=== PATIENT | female | born 1975 | race Caucasian/White ===

== ENCOUNTER 2019-06-01 11:48 | Emergency (ER) | payer OTHER, MEDICAID, SELFPAY ==
[2019-06-01] VITALS (9 sets, daily range): BP systolic 96–135; BP diastolic 58–73; PULSE 84–113; RESP 16–29; TEMP 36.7; O2SAT 96–100; BMI 52.8
[2019-06-01 12:28] LABS: Add Manual Diff / Slide Review NO; Basophils Absolute Auto 0 /uL (0-100); Basophils Percent Auto 1.4 % (0-2); Eosinophils Absolute Auto 100 /uL (0-450); Eosinophils Percent Auto 3.1 % (2-4); Hematocrit 32.1 % (36-46); Lymphocytes Absolute Auto 600 /uL (1100-4500); Mean Corpuscular HGB Conc 34.3 % (30-36); Mean Corpuscular Hemoglobin 35.5 PG (26-34); Mean Corpuscular Volume 103.6 fL (80-100); Monocytes Absolute Auto 200 /uL (0-900); Monocytes Percent Auto 8.8 % (3-14); Neutrophils Absolute Auto 1400 /uL (1500-7000); Neutrophils Percent Auto 59.7 % (50-75); Platelet Count 111 X10^3/uL (150-400); Red Cell Distribution Width 15.5 % (11.6-14.8); White Blood Cell Count 2.3 X10^3/uL (4.5-11.0)
[2019-06-01 12:34] LABS: INR 1.3 (0.9-1.3); Prothrombin Time 15.2 SECONDS (10.1-12.7)
[2019-06-01 12:36] LABS: PTT Partial Thromboplastin Tim 39 SECONDS (26.4-36.2)
[2019-06-01 12:38] LABS: Alanine Aminotransferase 46 IU/L (<35); Albumin 3.4 g/dL (3.5-5.0); Alkaline Phosphatase 196 U/L (38-126); Aspartate Aminotransferase 153 IU/L (14-36); BUN Creatinine Ratio 23.3 (6-22); Bilirubin Total 12.7 mg/dL (0.2-1.3); Blood Urea Nitrogen 14 mg/dL (7-17); Calcium 8.8 mg/dL (8.4-10.2); Carbon Dioxide 22 mmol/L (22-32); Chloride 104 mmol/L (98-107); Estimated Glomerular Filt Rate > 60.0 mL/min (>60); Globulin 3.5 g/dL (1.7-4.1); Glucose 99 mg/dL (70-100); HEMOLYSIS < 15 (0-50); Lipase 59 U/L (23-300); Potassium 3.7 mmol/L (3.4-5.1); Sodium 137 mmol/L (137-145); Total Protein 6.9 g/dL (6.3-8.2)
--- NOTE | 2019-06-01 13:22 | DI.CT.S_ITS ---
PROCEDURE: CT ABDOMEN PELVIS W CON INDICATIONS: Painless jaundice TECHNIQUE: After the administration of oral and intravenous contrast, 5 mm thick sections acquired from the diaphragms to the symphysis. 5 mm thick coronal and sagittal reformats were performed. For radiation dose reduction, the following was used: automated exposure control, adjustment of mA and/or kV according to patient size. COMPARISON: None. FINDINGS: Image quality: Excellent. ABDOMEN: Lung bases: Lung bases are clear. Heart size is normal. Solid organs: The liver is hypodense when compared to the spleen. There is slight nodular appearance to the surface of the liver. No definite liver lesions are appreciated. The gallbladder appears to be contracted and demonstrates a nodular irregular appearance. Calcifications within the gallbladder are present. No intrahepatic or definite extrahepatic biliary dilatation is identified. There is edema within the mesentery within the region of the gallbladder fossa that predominantly is centered about the duodenum. A trace amount of perihepatic fluid is noted. The spleen is enlarged and measures up to 17.9 cm and craniocaudal dimension. No definite splenic lesions are evident. The adrenals and kidneys are within normal limits. The pancreas appears to be within normal limits, as well. Peritoneum and bowel: The stomach is unremarkable. There is wall thickening of the 1st and 2nd portions of the duodenum with prominent surrounding edema within the adjacent mesentery. Otherwise, the duodenum is unremarkable. The small bowel loops are nondilated. There is a normal amount of stool identified within the colon. There is prominent fatty infiltration of the wall of the majority of the colon, most pronounced involving the ascending and transverse portions of the colon. A small amount of ascites is identified. There is no loculated fluid collection or free air. There is a moderate-sized infraumbilical ventral hernia that contains a fair amount of mesenteric contents. However, no bowel is seen extending into this hernia. The defect of the abdominal wall measures up to 4.2 cm in diameter. Nodes and vessels: No retroperitoneal or mesenteric adenopathy. Aorta and inferior vena cava are normal in caliber. Bones: No acute fracture or suspicious osseous lesion is evident. Age-appropriate degenerative changes of the spine are present. Other: Extensive subcutaneous edema is evident overlying the anterior and lateral portions of the abdomen. PELVIS: Genitourinary: Bladder wall thickness is normal. The uterus and ovaries do not appear to be enlarged. Miscellaneous: No inguinal hernias or adenopathy. Small amount of free fluid is seen within the pelvis. There is no loculated fluid collection or free air. Bones: No suspicious bony lesions. No acute pelvic fractures are identified. IMPRESSION: 1. Wall thickening and surrounding soft tissue edema involving the 1st and 2nd portions of the duodenum is suggestive of duodenitis. 2. The gallbladder is abnormal and may be contracted. There are gallstones within the gallbladder. The gallbladder ultrasound is recommended to exclude the possibility of a gallbladder mass. If the gallbladder ultrasound is negative, MRI of the liver with contrast is recommended for further evaluation. 3. Hepatic steatosis. Early nodular appearance to the liver does raise suspicion for potential early developing hepatic cirrhosis. 4. Marked splenomegaly without a definable mass or lesion. The splenic vein is enlarged. This is most likely related to chronic liver disease. However, clinical correlation to exclude an infiltrative/neoplastic process of the spleen is recommended. 5. Large infraumbilical ventral hernia containing mesentery. 6. Extensive fatty infiltration of the wall of the colon is nonspecific, but often seen in the setting of chronic inflammatory bowel disease, such as ulcerative colitis or Crohn's disease. 7. Small amount of abdominal and pelvic ascites. Dictated by: Kg Foster M.D. on 06/01/2019 at 13:50 Approved by: Kg Foster M.D. on 06/01/2019 at 14:01
[2019-06-01 15:57] LABS: Amorphous Sediment Urine 1+; Bacteria Urine Moderate (10-30); Culture Indicated Urine Specimen Cultured; Ictotest Urine Positive (Negative); Mucus Urine 1+ (Negative); RBC Urine 0-1/HPF (0-5/HPF); Squamous Epithelial Cell Urine 1-5 /HPF (0-5/HPF); Transitional Epi Cells Urine 1-5/HPF (0-5/HPF); WBC Urine 5-10/HPF (0-5/HPF)
--- NOTE | 2019-06-01 16:10 | ED.ABDPAIN ---
HPI - Abdominal Pain General Chief Complaint: Abdominal Pain Stated Complaint: jaundice and swelling Time Seen by Provider: 06/01/19 13:03 Source: patient Mode of arrival: Ambulatory History of Present Illness HPI narrative: Chief complaint: Swelling of her legs. HPI: The patient is a 43-year-old female who was very guarded in providing history. She admits to being a chronic alcoholic and states that she has a history of gallbladder problems with gallstones that is being discussed with a physician. She also states that she has developing cirrhosis of the liver. She states that she has developed jaundice over the last few days prior to admission. She is complaining that her skin over her abdomen and legs just itches intensely. She has developed progressively worse swelling of her legs over the last 2 weeks with progressive weakness and difficulty in walking. She denies a history of ascites, kidney failure, or congestive heart failure. She denies anyabdominal pain, and fever chills sweats, chest pain cough shortness of breath, nausea vomiting diarrhea or dysuria. She denies a history of hepatitis, TB, HIV. Related Data Home Medications Medication Instructions Recorded Confirmed bupropion HCl [Wellbutrin SR] 150 mg PO BID 06/01/19 06/01/19 ibuprofen 200 mg PO PRN PRN 06/01/19 06/01/19 Previous Rx's Medication Instructions Recorded furosemide [Lasix] 20 mg PO QAM #10 tab 06/01/19 spironolactone 25 mg PO BID #30 tab 06/01/19 Allergies Allergy/AdvReac Type Severity Reaction Status Date / Time No Known Drug Allergies Allergy Verified 06/01/19 11:56 Review of Systems Review of Systems ROS Unobtainable: All systems reviewed & are unremarkable except as noted in HPI and below Exam Narrative Exam Narrative: PHYSICAL EXAM: CONSTITUTIONAL: Awake, Alert, Oriented, Coherent, Cooperative in NAD. The patient is mildly diffusely yellow with jaundice. The patient appears morbidly obese HEAD: AT/NC EENT: PERRL, FROM of eyes, no discharge, no nystagmus marked scleral icterus No epistaxis or nasal drainage Oral mucosa is moist and pink, posterior pharynx is without erythema or exudate. NECK: Supple, no obvious JVD, Trachea is midline without stridor, no palpable LN or masses. Short neck. SPINE: No gross deformity, no palpable tenderness of the cervical, thoracic, lumbar or sacral spine. No CVA tenderness. THORAX: No deformity, retractions, chest wall tenderness, subcutaneous air or crepitice. LUNGS: Decreased breath sounds bilaterally with a few inspiratory crackles in both bases otherwise clear and symmetrical HEART: Normal heart tones, regular rhythm and rate without murmur. ABDOMEN: Soft, non-tender, normal bowel sounds without guarding, rebound, rigidity or palpable mass. The patient was thought to have ascites but there was minimal shifting dullness. EXTREMITIES: Obese with 2+ pitting edema no erythema. Was no petechia purpura or varicose veins. SKIN: There is a large circular area of minimal erythema caused by scratching over her central lower abdomen with linear excoriations radiating and extending upwards. I did not appreciate any petechia purpura spider angiomas. NEURO: Awake, alert, oriented, conversive, cranial nerves II-XII are symmetrical and normal, moves all 4 extremities and is ambulatory. There was no asterixis. Initial Vital Signs Initial Vital Signs: Vital Signs Temperature 98.1 F 06/01/19 11:56 Pulse Rate 113 H 06/01/19 11:56 Respiratory Rate 16 06/01/19 11:56 Blood Pressure 135/65 06/01/19 11:56 Pulse Oximetry 100 06/01/19 11:56 Course Course Course Narrative: The patient's CBC reveals a WBC of 2.3 hemoglobin 11.0 hematocrit 32.1 59.7% neutrophils protime is 15.2 with an INR 1.3 PTT is 39 seconds bilirubin is 12.7 AST is 153 ALT is 46 and alkaline phosphatase is 196. The patient's urinalysis is positive for bilirubin 0-1 red blood cell per high-power field white blood cells are 5-10 per high-power field moderate bacteria the specimen will be cultured. This is consistent with a urinary tract infection. A CT scan of the patient's abdomen reveals 1. Wall thickening and surrounding soft tissue edema involving the 1st and 2nd portions of the duodenum suggesting acute duodenitis. 2. The gallbladder is abnormal an may be contracted. There are gallstones within the gallbladder. The gallbladder ultrasound recommended to exclude the possibility of a gallbladder mass. If the gallbladder ultrasound is negative MRI of the liver with contrast is recommended for further evaluation. 3. Hepatic steatosis. Early nodular appearance of the liver does raises suspicion for potentially early developing hepatic cirrhosis. 4. Marked splenomegaly without a definable mass or lesion. The splenic vein is in large. This is most likely related to chronic liver disease. However clinical correlation to exclude 5. Large infraumbilical ventral hernia containing mesentery. 6 extensively fatty infiltration of the wall of the colon he is nonspecific, but often seen in setting of chronic inflammatory bowel disease such as ulcerative colitis or Crohn's disease. 7. Small amount of abdominal and pelvic ascites. I will discuss the patient with the on-call hospitalist. I discussed the patient with Dr. Gonzalez the hospitalist on-call who felt that the patient could be discharged home. The patient's ultrasound talking to the radiologist revealed that the gallbladder was contracted and filled with stones. There was no dilated or obstructed common bile duct or hepatic ducts. They did not see any tumor. He did review the review the CT scan as we were talking and stated that the patient has evidence of cirrhosis. She will need be seen in follow-up by a salesperson pianos and organs and a possible MRI obtained of the liver and gallbladder. The patient was informed of this discussion and agreed with being discharged home to be seen in follow-up by a specialist. She was advised to return to the emergency department if she develops worsening intolerable pain and discomfort, intractable persistent vomiting, pain with fever. She understood the instructions and was discharged home. Orders Ordered: Discontinued Medications Furosemide (Lasix) 40 mg IV NOW ONE Stop: 06/01/19 18:46 Last Admin: 06/01/19 18:50 Dose: 40 mg Documented by: ALYSESENVish Spironolactone (Aldactone) 25 mg PO NOW ONE Stop: 06/01/19 18:43 Last Admin: 06/01/19 19:15 Dose: 25 mg Documented by: RAMANA Vital Signs Vital signs: Vital Signs - 8 hr 06/01/19 11:56 06/01/19 15:00 Temperature 98.1 F Pulse Rate 113 H 88 Respiratory Rate 16 22 Blood Pressure 135/65 Blood Pressure [Left Arm] 126/59 L Pulse Oximetry 100 98 MDM - Abdominal Pain Lab Data Attestation: I reviewed the patient's lab results. Result diagrams: 06/01/19 12:20 06/01/19 12:20 Labs: Lab Results 06/01/19 06/01/19 06/01/19 Range/Units 12:20 12:20 12:20 WBC 2.3 L (4.5-11.0) X10^3/uL RBC 3.10 L (4.0-5.2) X10^6/uL Hgb 11.0 L (12.0-16.0) g/dL Hct 32.1 L (36-46) % MCV 103.6 H (80-100) fL MCH 35.5 H (26-34) PG MCHC 34.3 (30-36) % RDW 15.5 H (11.6-14.8) % Plt Count 111 L (150-400) X10^3/uL Neut % (Auto) 59.7 (50-75) % Lymph % (Auto) 27.0 (25-40) % [place] % (Auto) 8.8 (3-14) % Eos % (Auto) 3.1 (2-4) % Baso % (Auto) 1.4 (0-2) % Neut # (Auto) 1400 L (2532-4380) /uL Lymph # (Auto) 600 L (6475-6774) /uL [place] # (Auto) 200 (0-900) /uL Eos # (Auto) 100 (0-450) /uL Baso # (Auto) 0 (0-100) /uL PT 15.2 H (10.1-12.7) SECONDS INR 1.3 (0.9-1.3) APTT 39 H (26.4-36.2) SECONDS Sodium 137 (137-145) mmol/L Potassium 3.7 (3.4-5.1) mmol/L Chloride 104 (98-107) mmol/L Carbon Dioxide 22 (22-32) mmol/L BUN 14 (7-17) mg/dL Creatinine 0.60 (0.52-1.04) mg/dL Estimated GFR > 60.0 (>60) mL/min BUN/Creatinine Ratio 23.3 H (6-22) Glucose 99 (70-100) mg/dL Calcium 8.8 (8.4-10.2) mg/dL Total Bilirubin 12.7 H (0.2-1.3) mg/dL AST 153 H (14-36) IU/L ALT 46 H (<35) IU/L Alkaline Phosphatase 196 H (38-126) U/L Ammonia (9-30) umol/L Total Protein 6.9 (6.3-8.2) g/dL Albumin 3.4 L (3.5-5.0) g/dL Globulin 3.5 (1.7-4.1) g/dL Albumin/Globulin Ratio 1.0 (1.0-2.8) Lipase 59 (23-300) U/L Ur Bilirubin Confirm (Negative) Urine RBC (0-5/HPF) Urine WBC (0-5/HPF) Ur Squamous Epith Cells (0-5/HPF) Ur Transition Epith Cell (0-5/HPF) Amorphous Sediment Urine Bacteria (None) Urine Mucus (Negative) Ur Culture Indicated? 06/01/19 06/01/19 Range/Units 15:39 16:45 WBC (4.5-11.0) X10^3/uL RBC (4.0-5.2) X10^6/uL Hgb (12.0-16.0) g/dL Hct (36-46) % MCV (80-100) fL MCH (26-34) PG MCHC (30-36) % RDW (11.6-14.8) % Plt Count (150-400) X10^3/uL Neut % (Auto) (50-75) % Lymph % (Auto) (25-40) % [place] % (Auto) (3-14) % Eos % (Auto) (2-4) % Baso % (Auto) (0-2) % Neut # (Auto) (9027-7408) /uL Lymph # (Auto) (8018-2280) /uL [place] # (Auto) (0-900) /uL Eos # (Auto) (0-450) /uL Baso # (Auto) (0-100) /uL PT (10.1-12.7) SECONDS INR (0.9-1.3) APTT (26.4-36.2) SECONDS Sodium (137-145) mmol/L Potassium (3.4-5.1) mmol/L Chloride (98-107) mmol/L Carbon Dioxide (22-32) mmol/L BUN (7-17) mg/dL Creatinine (0.52-1.04) mg/dL Estimated GFR (>60) mL/min BUN/Creatinine Ratio (6-22) Glucose (70-100) mg/dL Calcium (8.4-10.2) mg/dL Total Bilirubin (0.2-1.3) mg/dL AST (14-36) IU/L ALT (<35) IU/L Alkaline Phosphatase (38-126) U/L Ammonia 10 (9-30) umol/L Total Protein (6.3-8.2) g/dL Albumin (3.5-5.0) g/dL Globulin (1.7-4.1) g/dL Albumin/Globulin Ratio (1.0-2.8) Lipase (23-300) U/L Ur Bilirubin Confirm Positive H (Negative) Urine RBC 0-1/hpf (0-5/HPF) Urine WBC 5-10/hpf H (0-5/HPF) Ur Squamous Epith Cells 1-5 /hpf (0-5/HPF) Ur Transition Epith Cell 1-5/hpf (0-5/HPF) Amorphous Sediment 1+ Urine Bacteria Moderate (10-30) H (None) Urine Mucus 1+ H (Negative) Ur Culture Indicated? Specimen cultured Point of care testing: Point of Care Testing Test Results Negative Urine Dip Bedside Urine Glucose 100 mg/dl Bedside Urine Bilirubin +++ 4 Bedside Urine Ketone +/- 5 Urine Specific [place] 1.025 Bedside Urine Occult Blood +/- Bedside Urine pH 5.5 Bedside Urine Protein + 30 Bedside Urine Urobilinogen 2+ 4mg Bedside Urine Nitrite + Positive Bedside Urine Leukocytes ++ 125 Esterase Discharge Plan Departure Patient Disposition: Home Clinical Impression: Edema, peripheral, Cholestatic pruritus, Hyperbilirubinemia, Alcoholism Cholelithiasis Qualifiers: Cholelithiasis location: gallbladder Cholecystitis presence: without cholecystitis Biliary obstruction: without biliary obstruction Qualified Code(s): K80.20 - Calculus of gallbladder without cholecystitis without obstruction Cirrhosis of liver Qualifiers: Hepatic cirrhosis type: alcoholic cirrhosis Ascites presence: with ascites Qualified Code(s): K70.31 - Alcoholic cirrhosis of liver with ascites Discharge Date/Time: 06/01/19 19:23 Instructions: DI for Jaundice, DI for Gallstones, DI for Abdominal Pain-Adult Activity Restrictions/Additional Instructions: Follow-up with a liver specialist and her primary care physician. Limit your fluid intake or your legs are swelling to 2 L per day. Take the Lasix 20 mg per day and spironolactone 25 mg b.i.d.. You will need to have your potassium recheck act in 5-7 days. If you develop worsening pain, persistent nausea and vomiting, difficulty in breathing, fever, you need to return to the emergency department or proceed to the nearest emergency department were every year or are. Prescriptions: New spironolactone 25 mg tablet 25 mg PO BID Qty: 30 RF: 0 furosemide [Lasix] 20 mg tablet 20 mg PO QAM Qty: 10 RF: 1 No Action bupropion HCl [Wellbutrin SR] 150 mg Tablet Sustained-Release 12 Hr 150 mg PO BID RF: 0 ibuprofen 200 mg Tablet 200 mg PO PRN PRN (Reason: pain) RF: 0
--- NOTE | 2019-06-01 16:22 | DI.US.S_ITS ---
PROCEDURE: US ABDOMEN LIMITED INDICATIONS: PAINLESS JAUNDICE W/GALLSTONES, R/O TUMOR PER CT REPORT TECHNIQUE: Real-time focused scanning was performed of the abdomen, with image documentation. COMPARISON: [facility], CT, CT ABDOMEN PELVIS W CON, 06/01/2019, 14:33. FINDINGS: Note: Limited exam due to body habitus and poor acoustic windows. Liver: Heterogeneous echotexture and increased in echogenicity. Gallbladder: Decompressed. Filled with shadowing gallstones. Gallbladder wall is difficult to visualize. No pericholecystic fluid identified. Negative sonographic Pulido's sign. Bile ducts: Not well-visualized. CBD measures approximately 5 mm and is within normal limits. IMPRESSION: Limited exam due to body habitus and poor acoustic windows. 1. Heterogeneous echotexture and increased echogenicity of the liver. These findings could be due to cirrhosis. 2. Decompressed gallbladder filled with gallstones. No convincing evidence of acute cholecystitis. 3. No biliary ductal dilatation identified. Comment: Findings were discussed with Dr. Ireland at the time of dictation. Report of heavy EtOH use. Dictated by: Marlo Shepherd M.D. on 06/01/2019 at 18:18 Approved by: Marlo Shepherd M.D. on 06/01/2019 at 18:25
[2019-06-01 17:06] LABS: Ammonia (NH3) 10 umol/L (9-30)
[2019-06-01] MEDS: FUROSEMIDE 40 MG/4 ML VIAL IV (18:50)
[2019-06-01] MEDS: SPIRONOLACTONE 25 MG TABLET PO (19:15)
[2019-06-05 08:34] LABS: Hepatitis A Antibody IgM NONREACTIVE; Hepatitis Acute Panel Interp 0.07; Hepatitis B Core Antibody IgM NONREACTIVE; Hepatitis B Surface Antigen NONREACTIVE; Hepatitis C Antibody NONREACTIVE
== END 2019-06-01 19:23 | disposition home or self-care (01) ==
PROVIDERS: Emergency Provider Emergency Medicine
DX: R60.9 Edema, unspecified (principal); E80.6 Other disorders of bilirubin metabolism; K80.20 Calculus of gallbladder without cholecystitis without obstruction; K70.31 Alcoholic cirrhosis of liver with ascites; L29.8 Other pruritus; F10.20 Alcohol dependence, uncomplicated
CPT/HCPCS: 36415; 74177; 76705; 80053; 80074; 81003; 81015; 81025; 82140; 83690; 85025; 85610; 85730; 87086; 93005; 96374; 99284; 99285; J1940